=== PATIENT | male | born 1965 | race Caucasian/White ===

== ENCOUNTER 2020-10-27 14:55 | Outpatient (CLI) | payer SELFPAY ==
--- NOTE | 2020-10-27 14:00 | XR_ITS ---
WS: [id number] XR KUB [id number] REASON FOR EXAM: RENAL STONE FINDINGS: The large calculus demonstrated in the left renal pelvis on CT scan of 10/13/2020 is not identifiable in the region of the left kidney, left ureter, or within the pelvis. No other significant abdominal findings are identified. XR/XR KUB [id number] IMPRESSION: Left renal calculus demonstrated previously is not identifiable on the current examination.
== END 2020-10-27 14:56 | disposition home or self-care (01) ==
LOC: RAD 15:00
PROVIDERS: PCP Physician Assistant Medical; Visit Provider Urology
DX: N20.0 Calculus of kidney (principal)
CPT/HCPCS: 74018

== ENCOUNTER 2020-11-07 07:26 | Outpatient (CLI) | payer OTHER, SELFPAY ==
--- NOTE | 2020-11-07 07:15 | XR_ITS ---
WS: [id number] KUB, AP view, 11/07/2020 Clinical Data: STONES Comparison: KUB, 10/27/2020. Findings: No abnormal intraabdominal masses or calcifications are seen. There is no dilatated small bowel or ev idence of obstruction. There is a moderate amount of fecal material throughout the colon. XR/XR KUB [id number] Impression: Negative KUB.
== END 2020-11-07 07:27 | disposition home or self-care (01) ==
LOC: RAD 07:29
PROVIDERS: PCP Physician Assistant Medical; Visit Provider Urology
DX: N20.0 Calculus of kidney (principal); Z20.822 Contact with and (suspected) exposure to COVID-19
CPT/HCPCS: 74018; 81003; 87635

== ENCOUNTER 2020-11-10 10:15 | Day surgery (SDC) | payer SELFPAY ==
[2020-11-07 13:51] VITALS: BMI 31.4
[2020-11-10] VITALS (10 sets, daily range): BP systolic 142–175; BP diastolic 90–110; PULSE 75–88; RESP 16–21; TEMP 36.1–36.8; O2SAT 94–100
--- NOTE | 2020-11-10 10:27 | XR_ITS ---
WS: [id number] Exam: XR KUB [id number] Date/Time of Exam: 11/10/2020 10:30 AM Reason For Exam: Preop left extracorporeal shockwave lithotripsy 2.7 cm ill-defined calcification superimposes the medial aspect the left kidney and may represent a l arge stone. A small calcification is seen in the lower pole. No bowel obstruction or free air. No sig n of organ enlargement. Regional bony elements are intact. XR/XR KUB [id number] IMPRESSION: 1. Left renal calcifications apparently representing the patient's known renal lithiasis. 2. No acute abdominal process.
--- NOTE | 2020-11-10 11:42 | ANES.PREANE2 ---
Pre-Anesthetic Assessment Pre-Anesthetic Assessment: Height/Weight: Height 1.8 m Weight 102.058 kg Temp Pulse Resp BP Pulse Ox 98.3 F 75 17 161/90 97 11/10/20 10:46 11/10/20 10:46 11/10/20 10:46 11/10/20 10:46 11/10/20 10:46 Preop Diagnosis: Symptomatic large left renal pelvic stone Proposed Procedure: Operation Date: 11/10/20 12:00 Proposed Procedures p Cystoscopy 08724 [id number] 80789 N20.0(Not Applicable) - Max Childs MD s Retrograde Pyelogram(Left) - MD domenic Camp ESWL(Left) - MD domenic Camp Ureteral Stent Placement(Left) - Max Childs MD Familial anesthetic complications: None Was Beta Karo taken within 24 hours: N/A Was Clonidine taken within 24 hours: N/A Last intake: Intake Last Liquid Date 11/10/20 Last Liquid Time 03:00 Last Solid Date 11/09/20 Last Solid Time 23:50 Social: Social History: No alcohol and No tobacco Exam: Pre-Anes Outpt Exam: alert, oriented x 3, clear to auscultation bilaterally and regular rate & rhythm Airway: Cervical ROM: WNL MP: 4 Dentition: Chipped Additional comments: large tongue Pulmonary: Pulmonary: Sleep apnea (Central + obstructive) CV/HEM: CV/HEM: HTN Metabolic: Metabolic: DM and Hyperlipidemia Anesthetic Plan: ASA status: 2 Anesthesia: General Risk of > 500 ml blood loss (7ml/kg in children): No PFSH Anesthesia PFSH: Medical History Diabetes Left renal stone Obstructive sleep apnea Surgical History History of hemorrhoidectomy Family History Father , AT 57 Heart attack Mother , AT 70 Sepsis Social History Alcohol intake: never Marital status: Current occupational status: employed History of recent travel: No Data Anesthesia Cardiac Studies: No Data to Display
[2020-11-10] MEDS: sodium chloride 0.9% 1,000 ML 30 ML IV (11:45)
[2020-11-10 11:49] LABS: Glucose Point of Care 132 mg/dL (70-110)
--- NOTE | 2020-11-10 11:52 | ANES.PROC ---
Anesthesia Procedures Procedure/Date: 11/10/20 Nerve Block ^: Nerve Block 1: Main Anesthesia: general anesthesia Time Out Performed: Yes Consent: requested by attending/covering physician, from patient, risks and benefits reviewed and patient agrees to proceed Nerve block location: adductor canal (R) Anesthesia monitors applied: pulse oximetry, EKG and BP cuff Nerve block position: supine Anesthetic Used: ropivicaine 0.5% and with decadron (4 mg) Ultrasound used to: recognize landmarks and visualize and ID femerol nerve Nerve Stimulator Used?: No Interscalene/Femoral BLK: 4 stimuplex 21 g needle used for position and inplane approach, visualize local anesthetic spread and no vascular puncture identified Injection: neg aspiration of heme Patient Tolerated Procedure: well and no complications Complications: none
--- NOTE | 2020-11-10 12:11 | W.PM.OPSUD ---
Surgery/Procedure H&P Update DATE OF PROCEDURE: November 10, 2020 DATE H&P PERFORMED: 11/07/20 H&P UPDATE INFORMATION: I have reviewed H&P completed within last 30 days, I have examined patient prior to procedure, No changes to prior documentation and H&P is in [facility] [place] EMR on date indicated CHANGES TO PREVIOUS DOCUMENTATION: Stone better seen on preop KUB after bowel preop PREOP DIAGNOSIS: Symptomatic large left renal pelvic stone PLANNED PROCEDURE: Operation Date: 11/10/20 12:00 Proposed Procedures p Cystoscopy 20171 [id number] N20.0(Not Applicable) - Max Childs MD s Retrograde Pyelogram(Left) - Max Childs MD s ESWL(Left) - Max Childs MD s Ureteral Stent Placement(Left) - Max Childs MD
[2020-11-10] MEDS: levofloxacin-dextrose 5 % 500 MG/100 ML PREMIX 100 MG IV (12:21)
--- NOTE | 2020-11-10 13:19 | P.OP_ITS ---
Operative Report Date of procedure: November 10, 2020 Pre-op Diagnosis: Symptomatic large left renal pelvic stone Post-op diagnosis: same Procedure Done: 1. Cystoscopy with left ureteral stent placement 2. LEFT renal extracorporeal shockwave lithotripsy Pathology: none sent Surgeon: Amadeo Anesthesia: General Estimated blood loss: None Urine output: Not measured Complications: None Findings: Stone easily identified with fluoroscopy. Stent left indwelling (six Cuban by 30 cm double-pigtail without string) 2550 shocks administered with excellent change. Condition: stable Disposition: PACU Brief History: Deng is a very pleasant 55-year-old white male recently diagnosed during work-up for chronic left flank pain to have a roughly 2 cm stone in the left renal pelvis. CT scan initially identified it and follow-up KUBs were so mewhat equivocal due to overlying stool. KUB preoperatively though today showed the stone quite well after he really cleaned out with a bowel prep preoperatively. Admitted now for cystoscopy stent and ESWL. We have discussed a retrograde if the stone was not readily visible on fluoroscopy Procedure: After routine preoperative evaluation examination and obtaining of informed consent he was taken to the operating suite on 11/10/2020 where general anesthesia was administered without difficulty after appropriate timeout was performed, SCDs confirmed to be functioning, preoperative antibiotics administered, beta-ariel protocol confirmed. Prepped and draped in usual sterile fashion in dorsolithotomy position paying careful attention to avoiding pressure points. 21 Cuban cystoscope with 30 degree lens was introduced to the urethral meatus and advanced into the bladder under videoscopy. The bladder was systematically examined and found to be within normal limits. A flexible tip guidewire was then advanced easily up the left ureter into the renal pelvis and a six Cuban by 30 cm double-pigtail stent was then advanced over the guidewire through the cystoscope into appropriate position as confirmed via fluoroscopy and cystoscopy. He was then repositioned in supine position paying careful attention to avoiding pressure points. The stone was easily identified with biplanar fluoroscopy. Shockwave was initiated intensity of one advanced an intensity of four. After about 300 shocks a several minute pause was conducted. Rate was 70 throughout the procedure. The stone showed early and significant change as the procedure progressed. By the completion of the procedure no definitive large stone fragments could be identified. The entire area of the renal pelvis was painted with shockwave therapy. The stent curl helped to maintain good positioning based on its location relative to the stone at time of initial passage. Tolerated procedure well without complications and was awakened in the operating room and returned to the recovery room in stable condition. PLANS: 1. Anticipate discharge from outpatient surgery today 2. Follow-up in 1 week with KUB 3. Partial bowel prep prior to the follow-up in order to assess adequacy of fragmentation
[2020-11-10] MEDS: HYDROcodone-acetaminophen 5-325 mg Tablet 1 TAB PO (14:14)
--- NOTE | 2020-11-10 16:37 | ANE.PACU2 ---
Inpatient post-anesthesia follow up: Airway intact: Yes Vital signs: Temperature 97.2 F Pulse Rate 76 Respiratory Rate 17 Blood Pressure 162/101 Pulse Oximetry 96 Oxygen Delivery Me thod Room Air Oxygen Flow Rate 6 Fraction of Inspir ed Oxygen Hydration adequate: Yes Nausea and vomiting: No Pain level: 2 Mental status: Baseline
== END 2020-11-10 14:40 | disposition home or self-care (01) ==
PROVIDERS: PCP Physician Assistant Medical; Visit Provider Urology
PROC: 0TJB8ZZ Inspection of Bladder, Via Natural or Artificial Opening Endoscopic (ICD-10-PCS; CPT 52000; principal; 2020-11-10 12:00)
PROC: (CPT 74420; 2020-11-10 12:00)
PROC: (CPT 50590; 2020-11-10 12:00)
PROC: (CPT 50605; 2020-11-10 12:00)
DX: N20.0 Calculus of kidney (principal); G47.33 Obstructive sleep apnea (adult) (pediatric); I10 Essential (primary) hypertension; E11.9 Type 2 diabetes mellitus without complications; E78.5 Hyperlipidemia, unspecified; Z79.82 Long term (current) use of aspirin
CPT/HCPCS: 50590; 52332; 36416; 74018; 82962; 96365; C2625; J1100; J1170; J1956; J2405; J2704; J3010; J3490; J7030

== ENCOUNTER 2020-11-20 07:41 | Outpatient (CLI) | payer SELFPAY ==
--- NOTE | 2020-11-20 07:00 | XR_ITS ---
WS: [id number] XR KUB [id number] REASON FOR EXAM: RENAL STONE FINDINGS: Left ureteral stent, properly positioned. Previous large left renal pelvis calculus no longer present. Debris or stone fragment overlying the l ower pole of the left kidney. Possibly small calculus fragment along the stent at the L4 level. No de finite calculi overlying the bladder. No other significant finding. XR/XR KUB [id number] IMPRESSION: Urinary tract calculi as above.
== END 2020-11-20 07:42 | disposition home or self-care (01) ==
PROVIDERS: PCP Physician Assistant Medical; Visit Provider Urology
DX: N20.0 Calculus of kidney (principal)
CPT/HCPCS: 74018; 81003; 82365

== ENCOUNTER 2020-12-18 07:13 | Outpatient (CLI) | payer SELFPAY ==
--- NOTE | 2020-12-18 07:15 | XR_ITS ---
WS: [id number] KUB, AP view, 12/18/2020 Clinical Data: RENAL STONE Comparison: KUB, 11/20/2020. Findings: No abnormal intraabdominal masses or calcifications are seen. There is no dilatated small bowel or ev idence of obstruction. The left ureteral stent has been removed. There are calcifications on the left side of the true pelvi s. XR/XR KUB [id number] Impression: Negative KUB.
== END 2020-12-18 07:14 | disposition home or self-care (01) ==
LOC: RAD 07:15
PROVIDERS: PCP Physician Assistant Medical; Visit Provider Urology
DX: N20.0 Calculus of kidney (principal)
CPT/HCPCS: 74018; 81003

== ENCOUNTER → 2023-11-15 14:22 | Outpatient (BNVA) | payer SELFPAY | PROVIDERS: PCP Physician Assistant Medical; Visit Provider Nurse Practitioner Family | DX: R06.00 Dyspnea, unspecified (principal) | CPT/HCPCS: 71046 ==